=== PATIENT | female | born 1995 | race Caucasian/White ===

== ENCOUNTER 2017-12-11 03:29 | Emergency (ER) | payer BC ==
[~2017-12-11] VITALS: Ht 157.5 cm; Wt 43.0 kg
[2017-12-11 03:30] VITALS: BP 133/89; PULSE 75; RESP 16; TEMP 98.8; O2SAT 98
[2017-12-11] MEDS ORDERED: ONDANSETRON ODT 4 MG TAB PO ONE (04:15)
[2017-12-11] MEDS ORDERED: LIDOCAINE VISCOUS 2% SOLN 15 ML UDC SWISH-SWAL ONE (04:15)
[2017-12-11] MEDS ORDERED: ALUMINUM/MAGNESIUM/SIMETH 30 ML CUP PO ONE (04:15)
--- NOTE | 2017-12-11 04:26 | PD ---
HPI Chief Complaint: Abdominal Pain Time Seen by Provider: 03:42 Travel History International Travel<30 days: No Contact w/Intl Traveler<30days: No Traveled to known affect area: No History of Present Illness HPI Patient is a 22-year-old female coming in complaining of about 7 hours of epigastric pain. He had a couple days of diarrhea prior to this which she thought was unusual but she did not connect the stomach pain with the diarrhea. She is not taking anything to alleviate the pain and she has nausea epigastric pain in the ER she has not seen another doctor for this pain is burning sharp localized to the epigastrium 7 out of 10 when it's flaring now intermittent it is less than to 3 currently is 3 out of 10 in the ER. [facility] Past Medical History Medical History: Denies Significant Hx Influenza Vaccination: No ?: Unknown LMP: 11-26-17 Past Surgical History Surgical History: No Previous Surgery Social History Alcohol Use: No Tobacco Use: Yes Substance Use: Yes (marijuana) Allergies-Medications (Allergen,Severity, Reaction): Coded Allergies: No Known Allergies (Verified Allergy, Unknown, 12/11/17) Reported Meds & Prescriptions Reported Meds & Active Scripts Active Zofran Odt (Ondansetron Odt) 4 Mg Tab 4 Mg SL Q6HR PRN Cipro (Ciprofloxacin HCl) 500 Mg Tab 500 Mg PO BID Pepcid (Famotidine) 20 Mg Tab 20 Mg PO BID Protonix (Pantoprazole Sodium) 40 Mg Tab 40 Mg PO DAILY Review of Systems Except as stated in HPI: all other systems reviewed are Neg Gastrointestinal: Positive: Nausea, Diarrhea, Abdominal Pain Physical Exam Narrative GENERAL: Nontoxic-appearing in moderate distress holding her stomach epigastric SKIN: Warm and dry. HEAD: Atraumatic. Normocephalic. EYES: Pupils equal and round. No scleral icterus. No injection or drainage. ENT: No nasal bleeding or discharge. Mucous membranes pink and moist. NECK: Trachea midline. No JVD. CARDIOVASCULAR: Regular rate and rhythm. RESPIRATORY: No accessory muscle use. Clear to auscultation. Breath sounds equal bilaterally. GASTROINTESTINAL: Abdomen epigastric-tender, nondistended. Hepatic and splenic margins not palpable. MUSCULOSKELETAL: Extremities without clubbing, cyanosis, or edema. No obvious deformities. NEUROLOGICAL: Awake and alert. No obvious cranial nerve deficits. Motor grossly within normal limits. Five out of 5 muscle strength in the arms and legs. Normal speech. PSYCHIATRIC: Appropriate mood and affect; insight and judgment normal. Data Data Last Documented VS Vital Signs Date Time Temp Pulse Resp B/P (MAP) Pulse Ox O2 Delivery O2 Flow Rate FiO2 12/11/17 06:09 12/11/17 03:30 98.8 75 16 98 Room Air Orders Orders Ondansetron Odt (Zofran Odt) (12/11/17 04:15) Al-Mag Hy-Si 40-40-4 Mg/Ml Liq (Mag-Al P (12/11/17 04:15) Lidocaine 2% Viscous (Xylocaine 2% Visco (12/11/17 04:15) Influenzae A/B Antigen (12/11/17 04:10) Group A Rapid Strep Screen (12/11/17 04:10) Urinalysis - C+S If Indicated (12/11/17 04:10) Ed Urine Pregnancytest Poc (12/11/17 04:10) Strep Culture (Group A) (12/11/17 04:00) Urine Culture (12/11/17 04:20) Ed Discharge Order (12/11/17 05:54) Labs Laboratory Tests Test 12/11/17 04:20 Urine Color YELLOW Urine Turbidity HAZY Urine pH 6.0 Urine Specific [place] 1.019 Urine Protein 30 mg/dL Urine Glucose (UA) NEG mg/dL Urine Ketones NEG mg/dL Urine Occult Blood LARGE Urine Nitrite NEG Urine Bilirubin NEG Urine Urobilinogen LESS THAN 2.0 MG/DL Urine Leukocyte Esterase SMALL Urine RBC /hpf Urine WBC 10 /hpf Urine Squamous Epithelial Cells 12 /hpf Urine Amorphous Sediment RARE Urine Bacteria MANY /hpf Urine Mucus FEW /lpf Microscopic Urinalysis Comment CULTURE INDICATED MDM Medical Decision Making Medical Screen Exam Complete: Yes Emergency Medical Condition: Yes Differential Diagnosis Differential diagnosis includes kidney stones versus UTI versus GERD versus gastritis versus pancreatitis versus cystitis Narrative Course Patient is given GI cocktail viscous lidocaine and Maalox with complete relief of her symptoms discharge her home with Pepcid Protonix she has a few red cells white cells and bacteria in her urine which is due to her chronic medullary calcified condition Diagnosis Primary Impression: Gastritis Qualified Codes: K29.70 - Gastritis, unspecified, without bleeding Patient Instructions: Gastritis (ED), General Instructions Scripts Ondansetron Odt (Zofran Odt) 4 Mg Tab 4 MG SL Q6HR Y for Nausea/Vomiting, #10 TAB 0 Refills Prov: Esau Berger MD 12/11/17 Ciprofloxacin (Cipro) 500 Mg Tab 500 MG PO BID for Infection, #6 TAB 0 Refills Prov: Esau Berger MD 12/11/17 Famotidine (Pepcid) 20 Mg Tab 20 MG PO BID, #20 TAB 0 Refills Prov: Esau Berger MD 12/11/17 Pantoprazole (Protonix) 40 Mg Tab 40 MG PO DAILY for Reflux, #12 TAB 0 Refills Prov: Esau Berger MD 12/11/17 Disposition: 01 DISCHARGE HOME Condition: Good Esau Berger MD Dec 11, 2017 04:26
[2017-12-11 04:47] LABS: AMORPHOUS SEDIMENT, URINE RARE; BACTERIA, URINE MANY /hpf; BILIRUBIN, URINE NEG (NEG); BLOOD, URINE LARGE (NEG); GLUCOSE,URINE NEG (NEG); KETONE, URINE NEG (NEG); MUCUS URINE FEW /lpf (OCC); NITRITE,URINE NEG (NEG); SQUAMOUS EPITHELIAL CELL URINE 12 /hpf (0-5); URINE COLOR YELLOW (YELLW/STRAW); URINE LEUKOCYTE ESTERASE SMALL (NEG)
[2017-12-11] MEDS ORDERED: FAMO1TAB37 PO (05:36)
[2017-12-11] MEDS ORDERED: PROT40TA PO (05:36)
[2017-12-11] MEDS ORDERED: CIPR-9 PO (05:54)
[2017-12-11] MEDS ORDERED: ZOFR4TAB3 SL (05:54)
== END 2017-12-11 05:50 | disposition home or self-care (01) ==
LOC: NEPC 03:29
DX: K29.70 Gastritis, unspecified, without bleeding (principal); F12.90 Cannabis use, unspecified, uncomplicated; Z72.0 Tobacco use
CPT/HCPCS: 81001; 84703; 87081; 87086; 87804; 87880; 99284